=== PATIENT | male | born 1960 | race African-American/Black ===

== ENCOUNTER 2018-08-09 14:03 | Inpatient (IN) | payer OTHER, MEDICAID ==
[~2018-08-09] VITALS: Ht 175.3 cm; Wt 75.3 kg
[2018-08-09 22:14] LABS: BASOPHILS % 0.2 % (0.0-2.0); CHLORIDE 101 mEq/L (98-107); EOSINOPHILS % 0.3 % (0.0-5.0); LYMPHOCYTES % 33.2 % (20.0-50.0); MEAN CORPUSCULAR HEMOGLOBIN 27.3 pg (28.0-32.0); MEAN CORPUSCULAR VOLUME 78.8 fL (80.0-94.0); MONOCYTES % 7.6 % (2.0-8.0); NEUTROPHILS % 58.7 % (40.0-76.0); RED BLOOD CELL COUNT 2.44 mill/uL (4.7-6.1); RED CELL DISTRIBUTION WIDTH 35.2 % (11.6-14.6)
[2018-08-09 22:16] LABS: HEMOGLOBIN. 6.7 g/dL (14.0-18.0); INR 1.2; PROTHROMBIN TIME 12.5 sec (9.1-11.1)
[2018-08-09 22:17] LABS: HEMATOCRIT. 19.2 % (42.0-52.0)
[2018-08-09 22:20] LABS: TOTAL IRON BINDING CAPACITY 242 ug/dL (250-450)
[2018-08-09 22:22] LABS: PARTIAL THROMBOPLASTIN TIME < 21.0 sec (23.4-31.0)
[2018-08-09 22:28] LABS: MEAN PLATELET VOLUME 8.1 fl (7.4-10.4); PLATELET 73 x1000/uL (130-400)
[2018-08-09] MEDS ORDERED: HYDROCODONE/ACETAMINOPHEN 5/325MG TABLET PO ONE (23:45)
[2018-08-10 02:26] LABS: CLARITY URINE CLOUDY (CLEAR); COLOR URINE YELLOW (YELLOW); KETONES URINE NEGATIVE (NEGATIVE); LEUKOCYTE ESTERASE URINE NEGATIVE (NEGATIVE); NITRITE URINE NEGATIVE (NEGATIVE); OCCULT BLOOD URINE 2+ (NEGATIVE); PH URINE 5.5 (4.5-8.0); PROTEIN URINE TRACE (NEGATIVE)
[2018-08-10 02:39] LABS: *AMPHETAMINES SCREEN URINE NEGATIVE (NEGATIVE); *BARBITURATES SCREEN URINE NEGATIVE (NEGATIVE); *BENZODIAZEPINES SCREEN URINE NEGATIVE (NEGATIVE); *COCAINE SCREEN URINE NEGATIVE (NEGATIVE); METHADONE URINE SCREEN NEGATIVE (NEGATIVE); OPIATES URINE SCREEN NEGATIVE (NEGATIVE)
[2018-08-10 02:40] LABS: CANNABINOID URINE SCREEN PRESUMTIVE POSITIVE (NEGATIVE); PHENCYCLIDINE URINE SCREEN NEGATIVE (NEGATIVE)
[2018-08-10 08:30] VITALS: BP 137/79
[2018-08-10] MEDS ORDERED: B12/1TAB MT (10:09)
[2018-08-10] MEDS: SODIUM CHLORIDE 0.9% 1,000 ML IV SCH (10:19)
[2018-08-10] MEDS ORDERED: DOCUSATE SODIUM 100MG CAPSULE PO PRN (10:30)
[2018-08-10] MEDS ORDERED: ONDANSETRON HCL 4MG/2ML INJ IV PRN (10:30)
[2018-08-10] MEDS ORDERED: IPRATROPIUM/ALBUTEROL 0.5-3(2.5)MG/3ML NEB INH PRN (10:30)
[2018-08-10] MEDS ORDERED: INFLUENZA VIRUS VACCINE(AFLURIA) 0.5ML SYR IM ONE (10:45)
[2018-08-10 11:36] LABS: CHLORIDE 104 mEq/L (98-107)
[2018-08-10 11:40] LABS: HEMATOCRIT. 22.4 % (42.0-52.0); HEMOGLOBIN. 7.6 g/dL (14.0-18.0); MEAN CORPUSCULAR HEMOGLOBIN 27.1 pg (28.0-32.0); MEAN CORPUSCULAR VOLUME 80.2 fL (80.0-94.0); RED BLOOD CELL COUNT 2.79 mill/uL (4.7-6.1); RED CELL DISTRIBUTION WIDTH 31.3 % (11.6-14.6)
[2018-08-10 11:44] LABS: TOTAL IRON BINDING CAPACITY 245 ug/dL (250-450)
[2018-08-10 12:00] VITALS: BP 135/78
[2018-08-10 12:31] LABS: PLATELET 73 x1000/uL (130-400)
[2018-08-10 12:37] LABS: NUCLEATED RED BLOOD CELLS 3 /100 WBC; PLATELET ESTIMATE DECREASED
[2018-08-10 15:01] LABS: FOLIC ACID (FOLATE) SERUM 7.1 ng/mL (>5.38)
[2018-08-10 16:00] VITALS: BP 140/80
[2018-08-10] MEDS: PANTOPRAZOLE SODIUM 40 MG/VIAL IV SCH (16:19)
[2018-08-10 17:30] LABS: HEMATOCRIT 23.6 % (42.0-52.0)
[2018-08-10 20:00] VITALS: BP 118/67
[2018-08-10] MEDS: ACETAMINOPHEN 325MG TABLET PO PRN (22:14)
[2018-08-11] VITALS (10 sets, daily range): BP systolic 115–144; BP diastolic 65–83
[2018-08-11] MEDS: SODIUM CHLORIDE 0.9% 1,000 ML IV SCH (05:36)
[2018-08-11 06:53] LABS: HEMATOCRIT. 21.4 % (42.0-52.0); HEMOGLOBIN. 7.4 g/dL (14.0-18.0); MEAN CORPUSCULAR HEMOGLOBIN 27.3 pg (28.0-32.0); MEAN CORPUSCULAR VOLUME 79.1 fL (80.0-94.0); RED BLOOD CELL COUNT 2.71 mill/uL (4.7-6.1)
[2018-08-11 06:55] LABS: INR 1.2; PARTIAL THROMBOPLASTIN TIME 21.1 sec (23.4-31.0); PROTHROMBIN TIME 12.3 sec (9.1-11.1)
[2018-08-11 07:16] LABS: CHLORIDE 105 mEq/L (98-107)
[2018-08-11] MEDS: PANTOPRAZOLE SODIUM 40 MG/VIAL IV SCH (08:44)
[2018-08-11] MEDS: ACETAMINOPHEN 325MG TABLET PO PRN ×2 (08:45→22:47)
[2018-08-11 09:43] LABS: PLATELET 72 x1000/uL (130-400)
[2018-08-11 09:56] LABS: NUCLEATED RED BLOOD CELLS 6 /100 WBC; PLATELET ESTIMATE DECREASED
[2018-08-11 21:02] LABS: HEMATOCRIT 23.3 % (42.0-52.0); HEMOGLOBIN 8.1 g/dL (14.0-18.0)
[2018-08-11 21:18] LABS: INR 1.3; PROTHROMBIN TIME 13.4 sec (9.1-11.1)
[2018-08-11 22:11] LABS: HEPATITIS A AB IGM NEGATIVE (NEGATIVE)
[2018-08-12] VITALS: BP 107/64
[2018-08-12 04:00] VITALS: BP 127/72
[2018-08-12 07:50] LABS: HEMATOCRIT. 23.4 % (42.0-52.0); MEAN CORPUSCULAR HEMOGLOBIN 27.3 pg (28.0-32.0); MEAN CORPUSCULAR VOLUME 79.8 fL (80.0-94.0); RED BLOOD CELL COUNT 2.94 mill/uL (4.7-6.1); RED CELL DISTRIBUTION WIDTH 28.8 % (11.6-14.6)
[2018-08-12 08:00] VITALS: BP 125/72
[2018-08-12] MEDS: PANTOPRAZOLE SODIUM 40 MG/VIAL IV SCH (09:25)
[2018-08-12 12:17] VITALS: BP 127/73
[2018-08-12 12:50] LABS: HEPATITIS B SURFACE ANTIGEN NEGATIVE
[2018-08-12 12:58] LABS: NUCLEATED RED BLOOD CELLS 4 /100 WBC
[2018-08-12 12:59] LABS: PLATELET ESTIMATE DECREASED
[2018-08-12 13:00] LABS: MEAN PLATELET VOLUME 8.1 fl (7.4-10.4); PLATELET 66 x1000/uL (130-400)
[2018-08-12] MEDS ORDERED: FENTANYL CITRATE/PF 50MCG/ML 2ML VIAL ONE (14:51)
[2018-08-12] MEDS ORDERED: MIDAZOLAM HCL 5 MG/5 ML VIAL ONE (14:52)
[2018-08-12] MEDS ORDERED: DIPHENHYDRAMINE 50MG/ML VIAL ONE (15:05)
[2018-08-12 16:44] VITALS: BP_SYST 117; BP_SYST 146; BP_DIAS 73; BP_DIAS 87
[2018-08-12 20:00] VITALS: BP 124/77
[2018-08-12] MEDS: ACETAMINOPHEN 325MG TABLET PO PRN (21:27)
[2018-08-13] VITALS: BP 130/66
[2018-08-13 04:00] VITALS: BP 135/66
[2018-08-13] MEDS: SODIUM CHLORIDE 0.9% 1,000 ML IV SCH (04:20)
[2018-08-13 08:00] VITALS: BP 120/66
[2018-08-13] MEDS: PANTOPRAZOLE SODIUM 40 MG/VIAL IV SCH (09:03)
[2018-08-13 09:10] LABS: IMMUNOGLOBULIN G 234 mg/dL (700-1600); IMMUNOGLOBULIN M <5 mg/dL (20-172)
[2018-08-13 10:06] LABS: IMMUNOGLOBULIN A 5809 mg/dL (90-386)
[2018-08-13 12:13] VITALS: BP 136/73
[2018-08-13 16:34] VITALS: BP 117/75
[2018-08-13 16:51] VITALS: BP 120/76
[2018-08-14 09:06] LABS: KAPPA LT CHAINS FREE SERUM 1095.9 mg/L (3.3-19.4); KAPPA/LAMBDA RATIO 476.48 (0.26-1.65); LAMBDA LT CHAINS FREE SERUM 2.3 mg/L (5.7-26.3)
[2018-08-14 10:44] LABS: A/G RATIO 0.6 (0.7-1.7); ALBUMIN 3.7 g/dL (2.9-4.4); ALPHA-1-GLOBULIN 0.2 g/dL (0.0-0.4); ALPHA-2-GLOBULIN 0.6 g/dL (0.4-1.0); BETA GLOBULIN 5.3 g/dL (0.7-1.3); GAMMA GLOBULINS 0.6 g/dL (0.4-1.8); GLOBULIN TOTAL 6.7 g/dL (2.2-3.9); M-SPIKE Note: g/dL (Not Observed); TOTAL PROTEIN SERUM 10.4 g/dL (6.0-8.5)
[2018-08-14 13:06] LABS: HIV SCREEN 4G Non Reactive (Non Reactive)
== END 2018-08-13 17:26 | disposition home or self-care (01) | DRG 691 ==
LOC: ER 14:03 → 6EST 23:06 → EDBEDREQ 23:09 → EDBEDREQTM 23:09 → ENRESERV 08-10 07:21 → ER 08-10 08:19
PROVIDERS: ADMIT Internal Medicine; ATTEND Internal Medicine
PROC: 30233N1 Transfusion of Nonautologous Red Blood Cells into Peripheral Vein, Percutaneous Approach (ICD-10-PCS; principal; 2018-08-10)
PROC: 0DB68ZX Excision of Stomach, Via Natural or Artificial Opening Endoscopic, Diagnostic (ICD-10-PCS; 2018-08-12)
DX: C90.00 Multiple myeloma not having achieved remission (principal); D61.818 Other pancytopenia; E46 Unspecified protein-calorie malnutrition; M48.56XA Collapsed vertebra, not elsewhere classified, lumbar region, initial encounter for fracture; D50.9 Iron deficiency anemia, unspecified; F10.20 Alcohol dependence, uncomplicated; F12.10 Cannabis abuse, uncomplicated; G89.29 Other chronic pain; F17.210 Nicotine dependence, cigarettes, uncomplicated; I10 Essential (primary) hypertension; I95.1 Orthostatic hypotension; K29.60 Other gastritis without bleeding; K29.80 Duodenitis without bleeding; M43.16 Spondylolisthesis, lumbar region; F19.10 Other psychoactive substance abuse, uncomplicated; M19.90 Unspecified osteoarthritis, unspecified site; Z68.24 Body mass index [BMI] 24.0-24.9, adult
CPT/HCPCS: 36415; 36430; 71045; 72148; 76700; 80048; 80305; 82270; 82607; 82728; 82746; 82784; 83540; 83550; 83880; 83883; 84145; 84155; 84165; 84484; 85014; 85018; 85044; 85049; 85384; 86334; 86705; 86709; 86803; 86850; 86900; 86920; 87340; 87389; 88305; 88312; 88313; 93005; 93970; 99285; C9113; J1200; J2250; J3010; J7030; J7040; J7050; P9016

== ENCOUNTER 2019-11-16 14:46 | Emergency (ER) | payer MEDICAID, OTHER ==
[~2019-11-16] VITALS: Ht 165.1 cm; Wt 78.0 kg
[~2019-11-16 14:46] MED LIST: B12/1TAB MT
[2019-11-16] MEDS ORDERED: ACETAMINOPHEN 325MG TABLET PO ONE (15:30)
[2019-11-16] MEDS ORDERED: MORPHINE SULFATE 2 MG/ML CPJ (NOT FOR IM USE) IV ONE (16:15)
[2019-11-16 17:29] LABS: CHLORIDE 103 mEq/L (98-107); CLARITY URINE CLEAR (CLEAR); COLOR URINE YELLOW (YELLOW); KETONES URINE 1+ (NEGATIVE); LEUKOCYTE ESTERASE URINE NEGATIVE (NEGATIVE); NITRITE URINE NEGATIVE (NEGATIVE); OCCULT BLOOD URINE NEGATIVE (NEGATIVE); PH URINE 7.5 (4.5-8.0); PROTEIN URINE TRACE (NEGATIVE); SPECIFIC GRAVITY URINE 1.013 (1.005-1.030)
[2019-11-16 17:32] LABS: INR 1.1; PROTHROMBIN TIME 12.3 sec (9.6-11.0)
[2019-11-16 17:37] LABS: HEMATOCRIT. 45.6 % (42.0-52.0); HEMOGLOBIN. 15.9 g/dL (14.0-18.0); MEAN CORPUSCULAR HEMOGLOBIN 28.5 pg (28.0-32.0); MEAN CORPUSCULAR VOLUME 81.9 fL (80.0-94.0); MEAN PLATELET VOLUME 8.8 fl (7.4-10.4); PLATELET 183 x1000/uL (130-400); RED BLOOD CELL COUNT 5.56 mill/uL (4.7-6.1); RED CELL DISTRIBUTION WIDTH 22.1 % (11.6-14.6)
[2019-11-16 17:54] LABS: PLATELET ESTIMATE NORMAL
[2019-11-16] MEDS ORDERED: IOHEXOL-300 100 ML BOTTLE ONE (17:55)
[2019-11-16] MEDS ORDERED: ENOXAPARIN 80MG/0.8ML SYR SUBCUT ONE (18:30)
[2019-11-16] MEDS ORDERED: RIVAROXABAN 15 MG TABLET PO SCH (18:45)
[2019-11-16 19:00] VITALS: BP 128/75
== END 2019-11-16 19:26 | disposition left against medical advice (07) ==
LOC: ER 14:46
DX: R07.89 Other chest pain (principal); I26.99 Other pulmonary embolism without acute cor pulmonale; R06.00 Dyspnea, unspecified; W18.39XA Other fall on same level, initial encounter; Y93.89 Activity, other specified; Y92.89 Other specified places as the place of occurrence of the external cause; Y99.8 Other external cause status; Z85.9 Personal history of malignant neoplasm, unspecified; F12.10 Cannabis abuse, uncomplicated
CPT/HCPCS: 36415; 71045; 71260; 80053; 81003; 83880; 84484; 85025; 85610; 93005; 99285; J1650; Q9967; Z7610; J2270